=== PATIENT | female | born 1955 | race Caucasian/White ===

== ENCOUNTER 2021-02-13 10:00 | Inpatient (IN) | payer OTHER, SELFPAY ==
[~2021-02-13] VITALS: Ht 162.6 cm; Wt 70.3 kg
[~2021-02-13 10:00] MED LIST: CEFAZOLIN SOD 2 GM in D5W 50 ML IV ONE; POLYMYXIN 500,000/BACIT.10,000 UNITS in NS IRR 1 L IR ONE
[2021-02-13] MEDS ORDERED: NALOXONE HCL 0.4 MG/ML AMP (NARCAN) IVP PRN (12:30)
[2021-02-13] MEDS ORDERED: LABETALOL 100 MG/ 20ML VIAL IVP PRN (12:30)
[2021-02-13] MEDS ORDERED: ONDANSETRON HCL 4 MG/2 ML VIAL IVP PRN ×2 (12:30→14:15)
[2021-02-13] MEDS ORDERED: METOCLOPRAMIDE HCL 10 MG/2 ML VIAL IVP PRN (12:30)
[2021-02-13] MEDS ORDERED: ePHEDrine sulfate 50 MG/ML VIAL IVP PRN (12:30)
[2021-02-13] MEDS ORDERED: HYDROmorphone 1 MG/ML INJ. CARTRIDGE IVP PRN ×2 (12:30)
[2021-02-13] MEDS ORDERED: hydrALAZINE HCL 20 MG/ML VIAL IVP PRN (12:30)
[2021-02-13] MEDS ORDERED: OXYCODONE/ACETAMINOPHEN 5-325 TABLET PO PRN (14:15)
[2021-02-13] MEDS ORDERED: SIMETHICONE 80 MG TAB.CHEW PO PRN (14:15)
[2021-02-13] MEDS ORDERED: KETOROLAC TROMETHAMINE 10 MG TABLET (TORADOL) PO PRN (14:15)
[2021-02-13] MEDS ORDERED: D5W 1,000 ML IV PRN (14:30)
[2021-02-13] MEDS ORDERED: DEXTROSE 50% JECT 50 ML DISP.SYRIN IVP PRN (14:30)
[2021-02-13] MEDS ORDERED: GLUCOSE (DEXTROSE) ORAL GEL -Adults PO PRN (14:30)
[2021-02-13 15:40] VITALS: BP_SYST 144
[2021-02-13] MEDS: INSULIN LISPRO SLIDING SCALE 100 UNITS/ML VIAL (humaLOG) SUBCUT PRN ×2 (16:25→21:57)
[2021-02-13] MEDS: LR 1,000 ML IV SCH ×3 (16:41→23:55)
[2021-02-13] MEDS ORDERED: ZOLPIDEM TARTRATE 5 MG TABLET PO PRN (21:00)
[2021-02-13 22:03] VITALS: BP_SYST 128
[2021-02-14 00:49] VITALS: BP_SYST 133
[2021-02-14 02:59] VITALS: BP_SYST 141
[2021-02-14] MEDS: OXYCODONE/ACETAMINOPHEN 5-325 TABLET PO PRN ×2 (03:15→12:45)
[2021-02-14] MEDS ORDERED: KETOROLAC TROMETHAMINE 30 MG VIAL IVP ONE (06:00)
[2021-02-14 06:15] VITALS: BP_SYST 124
[2021-02-14 08:00] VITALS: BP_SYST 122
[2021-02-14] MEDS: INSULIN LISPRO SLIDING SCALE 100 UNITS/ML VIAL (humaLOG) SUBCUT PRN ×3 (12:41→21:06)
[2021-02-14] MEDS ORDERED: KETOROLAC TROMETHAMINE 30 MG VIAL ONE (14:28)
[2021-02-14] MEDS ORDERED: DEXAMETHASONE SOD PHOSPHATE 4 MG/ML VIAL ONE (14:28)
[2021-02-14] MEDS ORDERED: LR 1,000 ML IV.SOLN IV ONE (14:28)
[2021-02-14] MEDS ORDERED: MIDAZOLAM HCL 5 MG/ML VIAL (VERSED) IV ONE (14:28)
[2021-02-14] MEDS ORDERED: ROCURONIUM BROMIDE 10 MG/ML (ZEMURON) ONE (14:28)
[2021-02-14] MEDS ORDERED: WATER FOR IRRIGATION,STERILE 1,000 ML IRRIG.SOLN IR ONE (14:28)
[2021-02-14] MEDS ORDERED: NS IRRIG SOLN 1000 ML IR ONE (14:28)
[2021-02-14] MEDS ORDERED: HYDROmorphone 2 MG/ML VIAL ONE (14:28)
[2021-02-14] MEDS ORDERED: GLYCOPYRROLATE 0.2 MG/ML VIAL ONE (14:28)
[2021-02-14] MEDS ORDERED: PHENYLEPHRINE HCL 10 MG/ML VIAL (NEOSYNEPHRINE) ONE (14:28)
[2021-02-14] MEDS ORDERED: SEVOFLURANE 15 MIN GAS INH ONE (14:28)
[2021-02-14] MEDS ORDERED: ePHEDrine sulfate 50 MG/ML VIAL ONE (14:28)
[2021-02-14] MEDS ORDERED: BUPIVACAINE /EPINEPHRINE/PF 0.25% 30 ML VIAL INJ ONE (14:28)
[2021-02-14] MEDS ORDERED: CLINDAMYCIN 2% VAGINAL CREAM VG ONE (14:28)
[2021-02-14] MEDS ORDERED: NS 1000 ML IV.SOLN IV ONE (14:28)
[2021-02-14] MEDS ORDERED: PROPOFOL 200MG/ 20ML VIAL (DIPRIVAN) IV ONE (14:28)
[2021-02-14 16:00] VITALS: BP_SYST 122
[2021-02-14] MEDS: KETOROLAC TROMETHAMINE 30 MG VIAL IVP PRN (16:44)
[2021-02-14 21:07] VITALS: BP_SYST 111
[2021-02-14] MEDS: LR 1,000 ML IV SCH (23:10)
[2021-02-15] VITALS: BP_SYST 125
[2021-02-15 01:02] VITALS: BP_SYST 136
[2021-02-15] MEDS: KETOROLAC TROMETHAMINE 30 MG VIAL IVP PRN (01:03)
[2021-02-15] MEDS: LR 1,000 ML IV SCH ×2 (06:47→14:15)
[2021-02-15 08:00] VITALS: BP_SYST 146
[2021-02-15] MEDS: INSULIN LISPRO SLIDING SCALE 100 UNITS/ML VIAL (humaLOG) SUBCUT PRN (09:07)
[2021-02-15 12:00] VITALS: BP_SYST 145
[2021-02-15 16:00] VITALS: BP_SYST 148
[2021-02-15 17:04] VITALS: BP_SYST 140
== END 2021-02-15 18:30 | disposition home or self-care (01) | DRG 748 ==
LOC: SDS 10:00 → SMU 15:59 → UNDOFXSDCACCOM 16:00 → UNDOFXSDCRRACCOM 16:00 → UNDOFXSDCACCOM 16:01 → SMU 02-14 19:13 → UNDOFXSDCACCOM 02-14 19:16 → UNDOFXSDCRRACCOM 02-14 19:16 → SDS 02-15 09:54 → SMU 02-15 09:54
PROVIDERS: ADMIT Obstetrics & Gynecology; ATTEND Obstetrics & Gynecology
PROC: 0USG4ZZ Reposition Vagina, Percutaneous Endoscopic Approach (ICD-10-PCS; principal; 2021-02-14)
PROC: 0JQC0ZZ Repair Pelvic Region Subcutaneous Tissue and Fascia, Open Approach (ICD-10-PCS; 2021-02-14)
PROC: 0TSD0ZZ Reposition Urethra, Open Approach (ICD-10-PCS; 2021-02-14)
PROC: 0TJB8ZZ Inspection of Bladder, Via Natural or Artificial Opening Endoscopic (ICD-10-PCS; 2021-02-14)
PROC: 8E0W4CZ Robotic Assisted Procedure of Trunk Region, Percutaneous Endoscopic Approach (ICD-10-PCS; 2021-02-14)
DX: N81.3 Complete uterovaginal prolapse (principal); R33.9 Retention of urine, unspecified; J45.909 Unspecified asthma, uncomplicated; F32.9 Major depressive disorder, single episode, unspecified; E11.9 Type 2 diabetes mellitus without complications; E78.5 Hyperlipidemia, unspecified; E78.00 Pure hypercholesterolemia, unspecified; Z20.822 Contact with and (suspected) exposure to COVID-19; I10 Essential (primary) hypertension; N39.3 Stress incontinence (female) (male); Z90.49 Acquired absence of other specified parts of digestive tract; Z98.51 Tubal ligation status
CPT/HCPCS: 36415; 71045; 82948; 82962; 86886; 86900; 86901; 93005; C1727; C1771; C1781; E0190; J0690; J1100; J1170; J1885; J2250; J2370; J2704; J3490; J7030; J7060; J7120; U0003